=== PATIENT | female | born 1955 | race Caucasian/White ===

== ENCOUNTER 2018-03-18 15:38 | Inpatient (IN) ==
[2018-03-18] MEDS: Sod Chloride 0.9% Inj 1,000 ML IV.SIG SCH (17:16)
[2018-03-18] MEDS ORDERED: Piperacil/Tazo 2.25 GM Premix 50 ML IV.SIG SCH (18:00)
--- NOTE | 2018-03-18 18:12 | P.HP ---
History of Present Illness Service: medicine Primary Care Physician: Valencia Leigh MD History of Present Illness: Patient is a 62 year old female who approximately 2 weeks ago presented to the office with fever of 102, lower abdominal pain, sweats ,diarrhea and bloating. She was referred to the ED where evaluation revealed elevated white count and diverticulitis on ct scan. She was discharged on cipro and flagyl which she completed 6 days ago We kept in contact with her over the phone and per her report she was improving but still had occasionally lower abdominal cramping pain. She was brought into the office 2 days ago to evaluate resolution of her symptoms. She stated she was feeling better but still had the occasional cramping. She was sent for repeat lab work that showed white count of 13.5 CRP 81.7,Her cipro and flagyl were resumed yesterday pending ct scan that was ordered. This was done today and was read as worsening diverticulitis with evidence of contained perforation not felt to be amenable to drainage.She came back to the office and she still had complaint of lower abdominal cramping, she could not recall if she had a BM today but states she thinks her last one was soft and dark. She also had the night sweats. She had decreased appetite but denied nausea or emesis. She was drinking fluids. I discussed the situation with her and Dr Yesenia Thomas. The patient was agreeable to admission for Iv antibiotics and colorectal surgery evaluation. - Diagnosis (1) Diverticulitis of colon with perforation (2) Hypertension (3) Asthma Review of Systems All other systems reviewed negative except as stated in HPI PMFSH - History History Provided By: Patient, Medical Record - Medical History Medical History: Medical History (Last Updated 03/18/18 @ 17:31 by Valencia Leigh MD) Diverticulitis of colon with perforation (Acute) Hypertension (Acute) Depression (Acute) Asthma (Acute) History of hysterectomy Tendon tear, ankle - Surgical History Surgical History: Surgical History (Last Updated 03/18/18 @ 17:13 by Valencia Leigh MD) History of bladder repair surgery History of knee replacement - Family History Family History: Family History (Last Updated 03/18/18 @ 17:13 by Valencia Leigh MD) Mother Bladder cancer Brother Alzheimer disease Father Lymphoma Sister Multiple sclerosis - Tobacco History Second Hand Smoke Exposure: No Smoking Status: Never smoker - Alcohol History How Often Do You Have a Drink Containing Alcohol: 2 to 3 times a week - Substance Use History Substance History: No History of Abuse - Immunization History Tetanus Immunization: Unsure Hx Influenza Vaccine This Season: Yes Medications and Allergies Active Medications: Active Medications Albuterol (Duoneb Neb (Prn)) 1 ampul NEB Q2HR NEB PRN PRN Reason: SHORTNESS OF BREATH/WHEEZING Albuterol (Ventolin Hfa Inh) 2 puff INH Q4H PRN PRN Reason: acute asthma attack Amlodipine Besylate (Norvasc) 5 mg PO DAILY HARLEEN Citalopram Hydrobromide (Celexa) 10 mg PO DAILY HARLEEN Sodium Chloride (Ns Inj) 1,000 mls @ 100 mls/hr IV.SIG .Q10H HARLEEN Last Admin: 03/18/18 17:16 Dose: 100 mls/hr Piperacillin/Tazobactam/Dextrose (Zosyn 2.25 Gm Premix) 50 mls @ 50 mls/hr IV.SIG Q8H HARLEEN Metronidazole/Sodium Chloride (Flagyl 500 Mg Inj) 100 mls @ 100 mls/hr IV.SIG Q8H HARLEEN Allergies Allergy/AdvReac Type Severity Reaction Status Date / Time animal dander Allergy Severe WHEEZING Verified 03/18/18 16:27 diclofenac Allergy Severe ASTHMA Verified 03/18/18 16:27 LIKE SYMPTOMS feathers Allergy Severe WHEEZING Verified 03/18/18 16:27 shellfish derived Allergy Severe HIVES Verified 03/18/18 16:27 Home Medications Medication Instructions Recorded Confirmed Type albuterol sulfate [Ventolin HFA] 2 puff INHALATION Q4-6H PRN 03/18/18 03/18/18 History amlodipine 5 mg PO DAILY 03/18/18 03/18/18 History citalopram 10 mg PO DAILY 03/18/18 03/18/18 History triamterene-hydrochlorothiazid 1 tab PO DAILY 03/18/18 03/18/18 History Exam Vital signs: Intake & Output 03/17/18 03/18/18 03/18/18 18:59 06:59 18:59 Weight 93.9 kg Other: Weight On Admission 93.9 kg Narrative: In office BP 120/62 T 98.4 P80 R 18 POx RA 95% - Constitutional no acute distress - Routine HEENT Exam Head: Present: normocephalic Eye: Present: EOMI ENT: Present: mucous membranes moist - Routine Neck Exam Present: supple - Routine Respiratory Exam Present: CTA bilaterally - Routine Cardiovascular Exam Present: RRR - Routine Abdominal Exam Present: soft, normoactive bowel sounds, tenderness Comments: tenderness over both lower quadrants and suprapubic region +- RUQ. no rebound or guarding - Routine Extremities Exam Present: full ROM - Routine Skin Exam Present: scars Comments: both knees from prior surgery - Routine Neurological Exam Present: alert, oriented X3 Caprini VTE Risk Assessment Caprini VTE Risk Assessment: Moderate/High Risk (score >= 2) Caprini Risk Assessment Model: Point Value = 1 Point Value = 2 Point Value = 3 Point Value = 5 Age 41-60 Minor surgery BMI > 25 kg/m2 Swollen legs Varicose veins or History of unexplained or recurrent spontaneous Oral contraceptives or hormone replacement Sepsis (< 1 month) Serious lung disease, including pneumonia (< 1 month) Abnormal pulmonary function Acute myocardial infarction Congestive heart failure (< 1 month) History of inflammatory bowel disease Medical patient at bed rest Age 61-74 Arthroscopic surgery Major open surgery (> 45 min) Laparoscopic surgery (> 45 min) Malignancy Confined to bed (> 72 hours) Immobilizing plaster cast Central venous access Age >= 75 History of VTE Family history of VTE Factor V Leiden Prothrombin [id number] Lupus anticoagulant Anticardiolipin antibodies Elevated serum homocysteine Heparin-induced thrombocytopenia Other congenital or acquired thrombophilia Stroke (< 1 month) Elective arthroplasty Hip, pelvis, or leg fracture Acute spinal cord injury (< 1 month) Prophylaxis Regimen: Total Risk Factor Score Risk Level Prophylaxis Regimen 0-1 Low Early ambulation 2 Moderate Order ONE of the following: *Sequential Compression Device (SCD) *Heparin 5000 units SQ BID 3-4 Higher Order ONE of the following medications: *Heparin 5000 units SQ TID *Enoxaparin/Lovenox 40 mg SQ daily (WT < 150 kg, CrCl > 30 mL/min) *Enoxaparin/Lovenox 30 mg SQ daily (WT < 150 kg, CrCl > 10-29 mL/min) *Enoxaparin/Lovenox 30 mg SQ BID (WT < 150 kg, CrCl > 30 mL/min) AND/OR *Sequential Compression Device (SCD) 5 or more Highest Order ONE of the following medications: *Heparin 5000 units SQ TID (Preferred with Epidurals) *Enoxaparin/Lovenox 40 mg SQ daily (WT < 150 kg, CrCl > 30 mL/min) *Enoxaparin/Lovenox 30 mg SQ daily (WT < 150 kg, CrCl > 10-29 mL/min) *Enoxaparin/Lovenox 30 mg SQ BID (WT < 150 kg, CrCl > 30 mL/min) AND *Sequential Compression Device (SCD) Assessment and Plan - Assessment (1) Diverticulitis of colon with perforation Code(s): K57.20 - Diverticulitis of large intestine with perforation and abscess without bleeding Status: Acute Onset Date: ~03/05/18 Plan: Discussed with Dr Thomas. Will admit for IV antibiotics, IV fluids and colorectal evaluation. (2) Hypertension Code(s): I10 - Essential (primary) hypertension Status: Chronic Onset Date: Unknown Plan: continue home medications, hold diuretics while receiving IV fluids (3) Asthma Code(s): J45.909 - Unspecified asthma, uncomplicated Status: Chronic Onset Date: Unknown Plan: continue inhalers as needed - Plan Discussed Condition With: patient (1) Diverticulitis of colon with perforation Qualifiers: Diverticulitis bleeding: without bleeding Qualified Code(s): K57.20 - Diverticulitis of large intestine with perforation and abscess without bleeding (2) Hypertension Qualifiers: Hypertension type: essential hypertension Qualified Code(s): I10 - Essential (primary) hypertension (3) Asthma Qualifiers: Asthma severity: unspecified severity Asthma persistence: intermittent
[2018-03-18] MEDS ORDERED: Acetaminophen 325 MG Tablet PO PRN (18:14)
[2018-03-18] MEDS ORDERED: Temazepam 15 MG Capsule PO PRN (18:14)
[2018-03-18] MEDS ORDERED: Sod Chloride 0.9% Inj 1,000 ML IV.CONT SCH (18:15)
[2018-03-18 18:19] LABS: Baso # (Auto) 0.1 th/mm3 (0.0-0.2); Baso % (Auto) 1.2 % (0.0-2.0); Eos # (Auto) 0.1 th/mm3 (0.0-0.4); Eos % (Auto) 0.8 % (0.0-4.0); Hematocrit 37.2 % (35.0-46.0); Hemoglobin 12.4 gm/dL (11.6-15.3); Lymph # (Auto) 1.7 th/mm3 (1.0-4.8); Lymph % (Auto) 16.5 % (9.0-44.0); Mean Corpuscular HGB Conc 33.5 % (32.0-36.0); Mean Corpuscular Hemoglobin 29.7 pg (27.0-34.0); Mean Corpuscular Volume 88.8 fL (80.0-100.0); Mean Platelet Volume 8.9 fL (7.0-11.0); Mono # (Auto) 0.8 th/mm3 (0.0-0.9); Mono % (Auto) 7.6 % (0.0-8.0); Neut # (Auto) 7.7 th/mm3 (1.8-7.7); Neut % (Auto) 73.9 % (16.0-70.0); Platelet Count 533 th/mm3 (150-450); Red Blood Count 4.19 mil/mm3 (4.00-5.30); Red Cell Distribution Width 14.2 % (11.6-17.2); White Blood Count 10.4 th/mm3 (4.0-11.0)
[2018-03-18 18:25] LABS: Bilirubin,Urine Negative (Negative); Clarity,Urine Clear (Clear); Color,Urine Yellow (Yellw/Straw); Glucose,Urine (UA) Negative (Negative); Leukocyte Esterase,Urine Negative (Negative); Nitrite,Urine Negative (Negative); PH,Urine 7.5 (5.0-8.5); Specific Gravity,Urine Less/Equal 1.005 (1.002-1.035); Urobilinogen,Urine 0.2 mg/dL (Less than 2)
--- NOTE | 2018-03-18 18:28 | MB ---
cc: Yesenia Thomas MD, Carmen A MD DATE: 03/18/2018 CHIEF COMPLAINT: Perforated diverticulitis. HISTORY OF PRESENT ILLNESS: The patient is a 62-year-old female with no previous history of diverticulitis. She began having both left and right lower quadrant pain about 2 weeks ago. She also describes fevers and chills. She has had some mild nausea, but no emesis. She denies any diarrhea or constipation. She was seen as an outpatient by Dr. Perez and CT scan revealed diverticulitis with a microperforation. She was treated with oral Cipro and Flagyl, and symptomatically seemed to get significantly better. She was then seen again by Dr. Perez with a repeat scan, which revealed a worsening of her disease, particularly in the pelvis. I have not been able to review that second CT scan as of yet. Dr. Perez admitted her for IV antibiotics and possible surgery. The patient reports her normal bowel pattern is daily, without straining or constipation. She denies any bright red blood per rectum or melena. She denies any rectal pain. She did have previous colonoscopy within the last 6 months. PAST MEDICAL HISTORY: 1. Hypertension. 2. Asthma. 3. Depression. PAST SURGICAL HISTORY: 1. Bladder repair. 2. Bilateral knee repair. 3. Ankle repair. 4. Hysterectomy without bilateral salpingo-oophorectomy. ALLERGIES: DICLOFENAC. MEDICATIONS: 1. Amlodipine. 2. Citalopram. 3. Albuterol. 4. Triamterene/hydrochlorothiazide. SOCIAL HISTORY: Tobacco: None. Alcohol: Occasional. Substance history: None. PHYSICAL EXAMINATION: GENERAL: Reveals a pleasant female who appears comfortable. NEUROLOGIC: Grossly intact. SKIN: Warm and dry. CARDIOVASCULAR: Regular rate. CHEST: Breathing is symmetric bilaterally and nonlabored. ABDOMEN: Soft, nondistended. The patient is moderately tender to deep palpation in the suprapubic area, the right lower quadrant and the left lower quadrant; suprapubic area being worse. There is no guarding. There is no rebound. EXTREMITIES: Reveal no edema. LABORATORY WORK: Pending. IMPRESSION: Acute perforated diverticulitis with contained perforation. PLAN: A long discussion was undertaken with the patient today discussing the natural history of diverticulitis as well as the rationale behind surgery. Currently, she is relatively asymptomatic and I do think that giving her 24-48 hours to see if she responds to IV antibiotics would be reasonable. If, however, she fails to improve or worsens, exploratory laparotomy with resection and possible Deepak's pouch is indicated. If we can, however, get her acute disease under control, with bowel rest and IV antibiotics, I think that we can hopefully cool her down enough that we could do surgery 2-[address], with minimally invasive surgery and primary anastomosis. This was discussed with the patient in detail. I will continue to follow along with you. Thank you very much for your kind referral. MD GUILLERMO Hodgson/AMARIS , 06:09 PM , 06:17 PM MTDChidi
[2018-03-18 18:34] LABS: INR 1.1 Ratio; Prothrombin Time 11.4 sec (9.8-11.6)
[2018-03-18 18:36] LABS: Albumin 3.2 g/dL (3.4-5.0); Anion Gap 8 meq/L (5-15); Blood Urea Nitrogen 12 mg/dL (7-18); Calcium 8.9 mg/dL (8.5-10.1); Carbon Dioxide 29.7 meq/L (21.0-32.0); Chloride 98 meq/L (98-107); Glucose,Random 93 mg/dL (74-106); Sodium 136 meq/L (136-145)
[2018-03-18 18:39] LABS: Potassium 2.9 meq/L (3.5-5.1)
[2018-03-18 18:46] LABS: Squamous Epithelial Cell,Urine 0-5 /hpf (0-5)
[2018-03-18 19:56] LABS: Alanine Aminotransferase 19 U/L (10-53); Alkaline Phosphatase 59 U/L (45-117); Aspartate Aminotransferase 14 U/L (15-37); Glomerular Filtration Rate 57 mL/min (>89); Total Protein 8.1 g/dL (6.4-8.2)
[2018-03-18] MEDS: Piperacil/Tazo 3.375 GM Premix 50 ML IV.SIG SCH (20:27)
[2018-03-19] MEDS: Piperacil/Tazo 3.375 GM Premix 50 ML IV.SIG SCH ×4 (01:47→23:34)
[2018-03-19] MEDS: Sod Chloride 0.9% Inj 1,000 ML IV.SIG SCH (02:57)
[2018-03-19 05:42] LABS: Baso # (Auto) 0.1 th/mm3 (0.0-0.2); Baso % (Auto) 0.9 % (0.0-2.0); Eos # (Auto) 0.2 th/mm3 (0.0-0.4); Eos % (Auto) 1.8 % (0.0-4.0); Hematocrit 35.2 % (35.0-46.0); Hemoglobin 11.6 gm/dL (11.6-15.3); Lymph # (Auto) 1.8 th/mm3 (1.0-4.8); Lymph % (Auto) 19.5 % (9.0-44.0); Mean Corpuscular HGB Conc 32.9 % (32.0-36.0); Mean Corpuscular Hemoglobin 30.3 pg (27.0-34.0); Mean Corpuscular Volume 92.1 fL (80.0-100.0); Mean Platelet Volume 8.1 fL (7.0-11.0); Mono # (Auto) 0.8 th/mm3 (0.0-0.9); Mono % (Auto) 9.2 % (0.0-8.0); Neut # (Auto) 6.2 th/mm3 (1.8-7.7); Neut % (Auto) 68.6 % (16.0-70.0); Platelet Count 512 th/mm3 (150-450); Red Blood Count 3.82 mil/mm3 (4.00-5.30); Red Cell Distribution Width 14.1 % (11.6-17.2); White Blood Count 9.1 th/mm3 (4.0-11.0)
[2018-03-19 06:35] LABS: Alanine Aminotransferase 15 U/L (10-53); Albumin 2.7 g/dL (3.4-5.0); Alkaline Phosphatase 49 U/L (45-117); Anion Gap 8 meq/L (5-15); Aspartate Aminotransferase 13 U/L (15-37); Blood Urea Nitrogen 11 mg/dL (7-18); Calcium 8.5 mg/dL (8.5-10.1); Carbon Dioxide 30.5 meq/L (21.0-32.0); Chloride 104 meq/L (98-107); Glomerular Filtration Rate 65 mL/min (>89); Glucose,Random 95 mg/dL (74-106); Potassium 3.7 meq/L (3.5-5.1); Sodium 142 meq/L (136-145); Total Protein 7.1 g/dL (6.4-8.2)
[2018-03-19] MEDS: amLODIPine 5 MG Tablet PO SCH ×2 (08:44→10:49)
[2018-03-19] MEDS: Citalopram 20 MG Tablet PO SCH (08:45)
--- NOTE | 2018-03-19 12:05 | P.PN ---
Subjective Interval history: some loose stools today no pain Physical Exam Vital signs: Vital Signs 03/18/18 17:31 03/18/18 20:00 03/19/18 00:00 Temperature 98.5 F 99.3 F 98.9 F Pulse Rate 19 L 71 74 Respiratory Rate 19 18 18 Blood Pressure 130/65 108/71 108/62 Pulse Oximetry 95 94 L 93 L 03/19/18 08:00 Temperature 98.5 F Pulse Rate 77 Respiratory Rate 18 Blood Pressure 113/61 Pulse Oximetry 97 Intake & Output 03/18/18 03/19/18 03/19/18 18:59 06:59 18:59 Intake Total 0 / 0 2300 / 2300 150 / 150 Output Total 200 / 200 Balance -200 / -200 2300 / 2300 150 / 150 Weight 93.9 kg 94.1 kg Intake: IV 2300 / 2300 150 / 150 NS + KCl 20 mEq Inj 1,000 ML @ 1000 / 1000 100 mls/hr IV.CONT .Q10H HARLEEN Rx #:[id number] Zosyn 3.375 GM Premix 50 ML @ 100 / 100 50 / 50 100 mls/hr IV.SIG Q6H HARLEEN Rx#: [id number] NS Inj 1,000 ML @ 100 mls/hr IV 1000 / 1000 .SIG .Q10H HARLEEN Rx#:[id number] Flagyl 500 MG Inj 100 ML @ 100 200 / 200 100 / 100 mls/hr IV.SIG Q8H HARLEEN Rx#: [id number] Oral 0 / 0 Output: Urine 200 / 200 Other: Date of Last Bowel Movement 03/17/18 Weight On Admission 93.9 kg - Constitutional no acute distress - Routine HEENT Exam Head: Present: normocephalic Eye: Present: EOMI - Routine Respiratory Exam Present: CTA bilaterally - Routine Cardiovascular Exam Present: RRR - Routine Abdominal Exam Present: soft, normoactive bowel sounds, tenderness Comments: rt lower quadrant tenderness - Routine Extremities Exam Present: full ROM - Routine Neurological Exam Present: alert, oriented X3 - Routine Psychiatric Exam Present: normal affect Results - Labs CBC & Chem 7: 03/19/18 05:09 03/19/18 05:19 Laboratory Results - last 24 hr 03/18/18 03/18/18 03/18/18 17:30 17:30 17:30 CBC w Diff Auto diff final WBC 10.4 RBC 4.19 Hgb 12.4 Hct 37.2 MCV 88.8 MCH 29.7 MCHC 33.5 RDW 14.2 Plt Count 533 H D MPV 8.9 Neut % (Auto) 73.9 H Lymph % (Auto) 16.5 [place] % (Auto) 7.6 Eos % (Auto) 0.8 Baso % (Auto) 1.2 Neut # (Auto) 7.7 Lymph # (Auto) 1.7 [place] # (Auto) 0.8 Eos # (Auto) 0.1 Baso # (Auto) 0.1 WBC Differential . Differential Comment . PT INR APTT Sodium 136 Potassium 2.9 L* Chloride 98 Carbon Dioxide 29.7 Anion Gap 8 BUN 12 Creatinine 0.99 Estimated GFR 57 L Random Glucose 93 Calcium 8.9 Total Bilirubin 0.4 AST 14 L ALT 19 Alkaline Phosphatase 59 C-Reactive Protein 5.81 H Total Protein 8.1 Albumin 3.2 L Urine Color Urine Clarity Urine pH Ur Specific [place] Urine Protein Urine Glucose (UA) Urine Ketones Urine Occult Blood Urine Nitrate Urine Bilirubin Urine Urobilinogen Ur Leukocyte Esterase Urine RBC Ur Squamous Epith Cells Micro UA Comment Urine Culture Comments 03/18/18 03/18/18 03/19/18 17:30 17:57 05:09 CBC w Diff Auto diff final WBC 9.1 RBC 3.82 L Hgb 11.6 Hct 35.2 MCV 92.1 MCH 30.3 MCHC 32.9 RDW 14.1 Plt Count 512 H MPV 8.1 Neut % (Auto) 68.6 Lymph % (Auto) 19.5 [place] % (Auto) 9.2 H Eos % (Auto) 1.8 Baso % (Auto) 0.9 Neut # (Auto) 6.2 Lymph # (Auto) 1.8 [place] # (Auto) 0.8 Eos # (Auto) 0.2 Baso # (Auto) 0.1 WBC Differential . Differential Comment . PT 11.4 INR 1.1 APTT 28.0 Sodium Potassium Chloride Carbon Dioxide Anion Gap BUN Creatinine Estimated GFR Random Glucose Calcium Total Bilirubin AST ALT Alkaline Phosphatase C-Reactive Protein Total Protein Albumin Urine Color Yellow Urine Clarity Clear Urine pH 7.5 Ur Specific [place] Less/equal 1.005 Urine Protein Negative Urine Glucose (UA) Negative Urine Ketones Negative Urine Occult Blood Moderate H Urine Nitrate Negative Urine Bilirubin Negative Urine Urobilinogen 0.2 Ur Leukocyte Esterase Negative Urine RBC 4-15 H Ur Squamous Epith Cells 0-5 Micro UA Comment Culture not ind Urine Culture Comments Culture not ind 03/19/18 05:19 CBC w Diff WBC RBC Hgb Hct MCV MCH MCHC RDW Plt Count MPV Neut % (Auto) Lymph % (Auto) [place] % (Auto) Eos % (Auto) Baso % (Auto) Neut # (Auto) Lymph # (Auto) [place] # (Auto) Eos # (Auto) Baso # (Auto) WBC Differential Differential Comment PT INR APTT Sodium 142 Potassium 3.7 D Chloride 104 Carbon Dioxide 30.5 Anion Gap 8 BUN 11 Creatinine 0.88 Estimated GFR 65 L Random Glucose 95 Calcium 8.5 Total Bilirubin 0.6 AST 13 L ALT 15 Alkaline Phosphatase 49 C-Reactive Protein Total Protein 7.1 D Albumin 2.7 L Urine Color Urine Clarity Urine pH Ur Specific [place] Urine Protein Urine Glucose (UA) Urine Ketones Urine Occult Blood Urine Nitrate Urine Bilirubin Urine Urobilinogen Ur Leukocyte Esterase Urine RBC Ur Squamous Epith Cells Micro UA Comment Urine Culture Comments Assessment and Plan - Assessment (1) Diverticulitis of colon with perforation Code(s): K57.20 - Diverticulitis of large intestine with perforation and abscess without bleeding Status: Acute Onset Date: ~03/05/18 Plan: Discussed with Dr Thomas. On IV antibiotics, labwork improving, clinically she looks much better then her Ct report. She had completed 10 days of oral antibiotics on thu and resumed on thursday while repeat ct was done as outpatient. Hopefully with Iv antibiotics we can control the process so she can have the procedure robotically further down the line. (2) Hypertension Code(s): I10 - Essential (primary) hypertension Status: Chronic Onset Date: Unknown Plan: blood pressure lower this am, amlodipine held (3) Asthma Code(s): J45.909 - Unspecified asthma, uncomplicated Status: Chronic Onset Date: Unknown Plan: continue inhalers as needed, currently lung exam clear (1) Diverticulitis of colon with perforation Qualifiers: Diverticulitis bleeding: without bleeding Qualified Code(s): K57.20 - Diverticulitis of large intestine with perforation and abscess without bleeding (2) Hypertension Qualifiers: Hypertension type: essential hypertension Qualified Code(s): I10 - Essential (primary) hypertension (3) Asthma Qualifiers: Asthma severity: unspecified severity Asthma persistence: intermittent
--- NOTE | 2018-03-19 18:05 | P.PN ---
Subjective Interval history: Diverticulitis with contained perforation still with mild pain Physical Exam Vital signs: Vital Signs 03/18/18 20:00 03/19/18 00:00 03/19/18 08:00 Temperature 99.3 F 98.9 F 98.5 F Pulse Rate 71 74 77 Respiratory Rate 18 18 18 Blood Pressure 108/71 108/62 113/61 Pulse Oximetry 94 L 93 L 97 03/19/18 12:00 03/19/18 16:00 Temperature 98.1 F 98.7 F Pulse Rate 73 76 Respiratory Rate 18 18 Blood Pressure 130/70 128/77 Pulse Oximetry 97 97 Intake & Output 03/18/18 03/19/18 03/19/18 18:59 06:59 18:59 Intake Total 0 / 0 2300 / 2300 150 / 150 Output Total 200 / 200 Balance -200 / -200 2300 / 2300 150 / 150 Weight 93.9 kg 94.1 kg Intake: IV 2300 / 2300 150 / 150 NS + KCl 20 mEq Inj 1,000 ML @ 1000 / 1000 100 mls/hr IV.CONT .Q10H HARLEEN Rx #:[id number] Zosyn 3.375 GM Premix 50 ML @ 100 / 100 50 / 50 100 mls/hr IV.SIG Q6H HARLEEN Rx#: [id number] NS Inj 1,000 ML @ 100 mls/hr IV 1000 / 1000 .SIG .Q10H HARLEEN Rx#:[id number] Flagyl 500 MG Inj 100 ML @ 100 200 / 200 100 / 100 mls/hr IV.SIG Q8H HARLEEN Rx#: [id number] Oral 0 / 0 Output: Urine 200 / 200 Other: Date of Last Bowel Movement 03/17/18 Weight On Admission 93.9 kg - Constitutional no acute distress - Routine Respiratory Exam Comments: breathing symmetric and nonlabored - Routine Abdominal Exam Comments: soft, nondistended, tender to deep palpation BLQ and suprapubic Results - Labs CBC & Chem 7: 03/19/18 05:09 03/19/18 05:19 Laboratory Results - last 24 hr 03/18/18 03/18/18 03/18/18 17:30 17:30 17:30 CBC w Diff Auto diff final WBC 10.4 RBC 4.19 Hgb 12.4 Hct 37.2 MCV 88.8 MCH 29.7 MCHC 33.5 RDW 14.2 Plt Count 533 H D MPV 8.9 Neut % (Auto) 73.9 H Lymph % (Auto) 16.5 [place] % (Auto) 7.6 Eos % (Auto) 0.8 Baso % (Auto) 1.2 Neut # (Auto) 7.7 Lymph # (Auto) 1.7 [place] # (Auto) 0.8 Eos # (Auto) 0.1 Baso # (Auto) 0.1 WBC Differential . Differential Comment . PT INR APTT Sodium 136 Potassium 2.9 L* Chloride 98 Carbon Dioxide 29.7 Anion Gap 8 BUN 12 Creatinine 0.99 Estimated GFR 57 L Random Glucose 93 Calcium 8.9 Total Bilirubin 0.4 AST 14 L ALT 19 Alkaline Phosphatase 59 C-Reactive Protein 5.81 H Total Protein 8.1 Albumin 3.2 L Urine Color Urine Clarity Urine pH Ur Specific [place] Urine Protein Urine Glucose (UA) Urine Ketones Urine Occult Blood Urine Nitrate Urine Bilirubin Urine Urobilinogen Ur Leukocyte Esterase Urine RBC Ur Squamous Epith Cells Micro UA Comment Urine Culture Comments 03/18/18 03/18/18 03/19/18 17:30 17:57 05:09 CBC w Diff Auto diff final WBC 9.1 RBC 3.82 L Hgb 11.6 Hct 35.2 MCV 92.1 MCH 30.3 MCHC 32.9 RDW 14.1 Plt Count 512 H MPV 8.1 Neut % (Auto) 68.6 Lymph % (Auto) 19.5 [place] % (Auto) 9.2 H Eos % (Auto) 1.8 Baso % (Auto) 0.9 Neut # (Auto) 6.2 Lymph # (Auto) 1.8 [place] # (Auto) 0.8 Eos # (Auto) 0.2 Baso # (Auto) 0.1 WBC Differential . Differential Comment . PT 11.4 INR 1.1 APTT 28.0 Sodium Potassium Chloride Carbon Dioxide Anion Gap BUN Creatinine Estimated GFR Random Glucose Calcium Total Bilirubin AST ALT Alkaline Phosphatase C-Reactive Protein Total Protein Albumin Urine Color Yellow Urine Clarity Clear Urine pH 7.5 Ur Specific [place] Less/equal 1.005 Urine Protein Negative Urine Glucose (UA) Negative Urine Ketones Negative Urine Occult Blood Moderate H Urine Nitrate Negative Urine Bilirubin Negative Urine Urobilinogen 0.2 Ur Leukocyte Esterase Negative Urine RBC 4-15 H Ur Squamous Epith Cells 0-5 Micro UA Comment Culture not ind Urine Culture Comments Culture not ind 03/19/18 05:19 CBC w Diff WBC RBC Hgb Hct MCV MCH MCHC RDW Plt Count MPV Neut % (Auto) Lymph % (Auto) [place] % (Auto) Eos % (Auto) Baso % (Auto) Neut # (Auto) Lymph # (Auto) [place] # (Auto) Eos # (Auto) Baso # (Auto) WBC Differential Differential Comment PT INR APTT Sodium 142 Potassium 3.7 D Chloride 104 Carbon Dioxide 30.5 Anion Gap 8 BUN 11 Creatinine 0.88 Estimated GFR 65 L Random Glucose 95 Calcium 8.5 Total Bilirubin 0.6 AST 13 L ALT 15 Alkaline Phosphatase 49 C-Reactive Protein Total Protein 7.1 D Albumin 2.7 L Urine Color Urine Clarity Urine pH Ur Specific [place] Urine Protein Urine Glucose (UA) Urine Ketones Urine Occult Blood Urine Nitrate Urine Bilirubin Urine Urobilinogen Ur Leukocyte Esterase Urine RBC Ur Squamous Epith Cells Micro UA Comment Urine Culture Comments Assessment and Plan - Assessment (1) Diverticulitis of colon with perforation Code(s): K57.20 - Diverticulitis of large intestine with perforation and abscess without bleeding Status: Acute Onset Date: ~03/05/18 - Plan Would continue NPO for one additional day, and continue IV antibiotics for 4-5 days. Possibly start clears tomorrow. (1) Diverticulitis of colon with perforation Qualifiers: Diverticulitis bleeding: without bleeding Qualified Code(s): K57.20 - Diverticulitis of large intestine with perforation and abscess without bleeding
[2018-03-20] MEDS: Piperacil/Tazo 3.375 GM Premix 50 ML IV.SIG SCH ×4 (02:15→21:37)
--- NOTE | 2018-03-20 07:24 | P.PN ---
Subjective Interval history: She has no nausea vomiting. She denies any current abdominal pain. She would like to try a liquid diet and Dr. Thomas suggested that she could likely be started on a liquid diet today. Physical Exam Vital signs: Vital Signs 03/19/18 08:00 03/19/18 12:00 03/19/18 16:00 Temperature 98.5 F 98.1 F 98.7 F Pulse Rate 77 73 76 Respiratory Rate 18 18 18 Blood Pressure 113/61 130/70 128/77 Pulse Oximetry 97 97 97 03/19/18 20:00 03/20/18 00:00 Temperature 99.8 F H 99.5 F Pulse Rate 78 79 Respiratory Rate 18 18 Blood Pressure 120/68 117/74 Pulse Oximetry 95 93 L Intake & Output 03/19/18 03/20/18 03/20/18 18:59 06:59 18:59 Intake Total 1150 / 1150 1300 / 1300 Balance 1150 / 1150 1300 / 1300 Weight 94.4 kg Intake: IV 1150 / 1150 1300 / 1300 NS + KCl 20 mEq Inj 1,000 ML @ 1000 / 1000 1000 / 1000 100 mls/hr IV.CONT .Q10H [facility] Rx #:[id number] Zosyn 3.375 GM Premix 50 ML @ 50 / 50 100 / 100 100 mls/hr IV.SIG Q6H [facility] Rx#: [id number] Flagyl 500 MG Inj 100 ML @ 100 100 / 100 200 / 200 mls/hr IV.SIG Q8H [facility] Rx#: [id number] Oral 0 / 0 Other: # Voids 3 # Bowel Movements 1 Narrative: Exam: This is a pleasant white female in no distress. HEENT: Pupils equal, EOMs intact, mouth without lesions Neck: No JVD, neck is supple Heart: Regular rate and rhythm without murmurs or gallops Lungs: Clear to auscultation Abdomen: Soft, nontender, no masses Extremities: No edema, pulses palpated, no calf tenderness Neuro: Alert, oriented, normal motor exam, sensation intact Results - Labs CBC & Chem 7: 03/19/18 05:09 03/19/18 05:19 Laboratory Results - last 48 hr 03/18/18 03/18/18 03/18/18 17:30 17:30 17:30 CBC w Diff Auto diff final WBC 10.4 RBC 4.19 Hgb 12.4 Hct 37.2 MCV 88.8 MCH 29.7 MCHC 33.5 RDW 14.2 Plt Count 533 H D MPV 8.9 Neut % (Auto) 73.9 H Lymph % (Auto) 16.5 [place] % (Auto) 7.6 Eos % (Auto) 0.8 Baso % (Auto) 1.2 Neut # (Auto) 7.7 Lymph # (Auto) 1.7 [place] # (Auto) 0.8 Eos # (Auto) 0.1 Baso # (Auto) 0.1 WBC Differential . Differential Comment . PT INR APTT Sodium 136 Potassium 2.9 L* Chloride 98 Carbon Dioxide 29.7 Anion Gap 8 BUN 12 Creatinine 0.99 Estimated GFR 57 L Random Glucose 93 Calcium 8.9 Total Bilirubin 0.4 AST 14 L ALT 19 Alkaline Phosphatase 59 C-Reactive Protein 5.81 H Total Protein 8.1 Albumin 3.2 L Urine Color Urine Clarity Urine pH Ur Specific [place] Urine Protein Urine Glucose (UA) Urine Ketones Urine Occult Blood Urine Nitrate Urine Bilirubin Urine Urobilinogen Ur Leukocyte Esterase Urine RBC Ur Squamous Epith Cells Micro UA Comment Urine Culture Comments 03/18/18 03/18/18 03/19/18 17:30 17:57 05:09 CBC w Diff Auto diff final WBC 9.1 RBC 3.82 L Hgb 11.6 Hct 35.2 MCV 92.1 MCH 30.3 MCHC 32.9 RDW 14.1 Plt Count 512 H MPV 8.1 Neut % (Auto) 68.6 Lymph % (Auto) 19.5 [place] % (Auto) 9.2 H Eos % (Auto) 1.8 Baso % (Auto) 0.9 Neut # (Auto) 6.2 Lymph # (Auto) 1.8 [place] # (Auto) 0.8 Eos # (Auto) 0.2 Baso # (Auto) 0.1 WBC Differential . Differential Comment . PT 11.4 INR 1.1 APTT 28.0 Sodium Potassium Chloride Carbon Dioxide Anion Gap BUN Creatinine Estimated GFR Random Glucose Calcium Total Bilirubin AST ALT Alkaline Phosphatase C-Reactive Protein Total Protein Albumin Urine Color Yellow Urine Clarity Clear Urine pH 7.5 Ur Specific [place] Less/equal 1.005 Urine Protein Negative Urine Glucose (UA) Negative Urine Ketones Negative Urine Occult Blood Moderate H Urine Nitrate Negative Urine Bilirubin Negative Urine Urobilinogen 0.2 Ur Leukocyte Esterase Negative Urine RBC 4-15 H Ur Squamous Epith Cells 0-5 Micro UA Comment Culture not ind Urine Culture Comments Culture not ind 03/19/18 05:19 CBC w Diff WBC RBC Hgb Hct MCV MCH MCHC RDW Plt Count MPV Neut % (Auto) Lymph % (Auto) [place] % (Auto) Eos % (Auto) Baso % (Auto) Neut # (Auto) Lymph # (Auto) [place] # (Auto) Eos # (Auto) Baso # (Auto) WBC Differential Differential Comment PT INR APTT Sodium 142 Potassium 3.7 D Chloride 104 Carbon Dioxide 30.5 Anion Gap 8 BUN 11 Creatinine 0.88 Estimated GFR 65 L Random Glucose 95 Calcium 8.5 Total Bilirubin 0.6 AST 13 L ALT 15 Alkaline Phosphatase 49 C-Reactive Protein Total Protein 7.1 D Albumin 2.7 L Urine Color Urine Clarity Urine pH Ur Specific [place] Urine Protein Urine Glucose (UA) Urine Ketones Urine Occult Blood Urine Nitrate Urine Bilirubin Urine Urobilinogen Ur Leukocyte Esterase Urine RBC Ur Squamous Epith Cells Micro UA Comment Urine Culture Comments Assessment and Plan - Assessment (1) Diverticulitis of colon with perforation Code(s): K57.20 - Diverticulitis of large intestine with perforation and abscess without bleeding Status: Acute Onset Date: ~03/05/18 (2) Hypertension Code(s): I10 - Essential (primary) hypertension Status: Chronic Onset Date: Unknown (3) Asthma Code(s): J45.909 - Unspecified asthma, uncomplicated Status: Chronic Onset Date: Unknown - Plan Plan: Continue IV antibiotics. Recommendation as to when to switch to oral antibiotics will be decided on by the colorectal surgeon. Start on a full liquid diet. Continue SCDs for DVT prophylaxis. Repeat CBC and BMP in the morning. (1) Diverticulitis of colon with perforation Qualifiers: Diverticulitis bleeding: without bleeding Qualified Code(s): K57.20 - Diverticulitis of large intestine with perforation and abscess without bleeding (2) Hypertension Qualifiers: Hypertension type: essential hypertension Qualified Code(s): I10 - Essential (primary) hypertension (3) Asthma Qualifiers: Asthma severity: unspecified severity Asthma persistence: intermittent
[2018-03-20 07:59] LABS: Baso % (Auto) 0.4 % (0.0-2.0); Eos # (Auto) 0.2 th/mm3 (0.0-0.4); Eos % (Auto) 1.8 % (0.0-4.0); Hematocrit 35.8 % (35.0-46.0); Hemoglobin 11.8 gm/dL (11.6-15.3); Lymph # (Auto) 1.7 th/mm3 (1.0-4.8); Lymph % (Auto) 18.2 % (9.0-44.0); Mean Corpuscular HGB Conc 32.9 % (32.0-36.0); Mean Corpuscular Hemoglobin 30.4 pg (27.0-34.0); Mean Corpuscular Volume 92.3 fL (80.0-100.0); Mean Platelet Volume 8.3 fL (7.0-11.0); Mono # (Auto) 0.7 th/mm3 (0.0-0.9); Mono % (Auto) 8.2 % (0.0-8.0); Neut # (Auto) 6.5 th/mm3 (1.8-7.7); Neut % (Auto) 71.4 % (16.0-70.0); Platelet Count 496 th/mm3 (150-450); Red Blood Count 3.88 mil/mm3 (4.00-5.30); White Blood Count 9.1 th/mm3 (4.0-11.0)
[2018-03-20 08:04] LABS: Chloride 105 meq/L (98-107); Potassium 3.7 meq/L (3.5-5.1); Sodium 140 meq/L (136-145)
[2018-03-20 08:07] LABS: Calcium 8.3 mg/dL (8.5-10.1)
[2018-03-20 08:08] LABS: Albumin 2.7 g/dL (3.4-5.0); Anion Gap 7 meq/L (5-15); Blood Urea Nitrogen 7 mg/dL (7-18); Carbon Dioxide 27.8 meq/L (21.0-32.0); Glucose,Random 88 mg/dL (74-106)
[2018-03-20 08:11] LABS: Alanine Aminotransferase 14 U/L (10-53); Aspartate Aminotransferase 11 U/L (15-37); Glomerular Filtration Rate 69 mL/min (>89)
[2018-03-20 08:12] LABS: Total Protein 7.1 g/dL (6.4-8.2)
[2018-03-20 08:14] LABS: Alkaline Phosphatase 51 U/L (45-117)
[2018-03-20] MEDS: Citalopram 20 MG Tablet PO SCH (08:18)
[2018-03-20] MEDS: amLODIPine 5 MG Tablet PO SCH (08:19)
--- NOTE | 2018-03-20 12:38 | P.PNCS ---
Subjective Interval history: C/R Surg afebrile, VSS clifford liq diet stools loose Objective Result Diagrams: 03/20/18 06:55 03/20/18 06:55 Objective Remarks: PE alert Abd - soft, no tympany, no mass, none tender Assessment and Plan - Assessment (1) Diverticulitis of colon with perforation Code(s): K57.20 - Diverticulitis of large intestine with perforation and abscess without bleeding Status: Acute Onset Date: ~03/05/18 - Plan Imp: adv diet dc IVF dc plans (1) Diverticulitis of colon with perforation Qualifiers: Diverticulitis bleeding: without bleeding Qualified Code(s): K57.20 - Diverticulitis of large intestine with perforation and abscess without bleeding
[2018-03-21] MEDS: Piperacil/Tazo 3.375 GM Premix 50 ML IV.SIG SCH ×3 (02:04→16:55)
--- NOTE | 2018-03-21 07:51 | P.PN ---
Subjective Interval history: No abdominal pain. No nausea, vomiting. She tolerated full liquid diet yesterday. Physical Exam Vital signs: Vital Signs 03/20/18 11:04 03/20/18 14:59 03/20/18 20:00 Temperature 98 F 98.3 F 98.8 F Pulse Rate 77 69 76 Respiratory Rate 20 20 20 Blood Pressure 107/67 110/66 119/71 Pulse Oximetry 94 L 94 L 95 03/21/18 00:00 03/21/18 07:19 Temperature 98.8 F 97.5 F L Pulse Rate 75 75 Respiratory Rate 20 20 Blood Pressure 110/71 137/80 Pulse Oximetry 95 95 Intake & Output 03/20/18 03/21/18 03/21/18 18:59 06:59 18:59 Intake Total 2220 / 2220 1300 / 1300 Balance 2220 / 2220 1300 / 1300 Weight 97 kg Intake: IV 1200 / 1200 1300 / 1300 NS + KCl 20 mEq Inj 1,000 ML @ 1000 / 1000 1000 / 1000 75 mls/hr IV.CONT .[id number] [facility] Rx#:[id number] Zosyn 3.375 GM Premix 50 ML @ 100 / 100 100 / 100 100 mls/hr IV.SIG Q6H [facility] Rx#: [id number] Flagyl 500 MG Inj 100 ML @ 100 100 / 100 200 / 200 mls/hr IV.SIG Q8H [facility] Rx#: [id number] Oral 1020 / 1020 Other: # Voids 5 Date of Last Bowel Movement 03/17/18 # Bowel Movements 1 Narrative: Exam: This is a pleasant [] in no distress. HEENT: Pupils equal, EOMs intact, mouth without lesions Neck: No JVD, neck is supple Heart: Regular rate and rhythm without murmurs or gallops Lungs: Clear to auscultation Abdomen: Soft, nontender, no masses Extremities: No edema, pulses palpated, no calf tenderness Neuro: Alert, oriented, normal motor exam, sensation intact Results - Labs CBC & Chem 7: 03/20/18 06:55 03/20/18 06:55 Laboratory Results - last 24 hr 03/20/18 03/20/18 06:55 06:55 CBC w Diff Auto diff final WBC 9.1 RBC 3.88 L Hgb 11.8 Hct 35.8 MCV 92.3 MCH 30.4 MCHC 32.9 RDW 14.0 Plt Count 496 H MPV 8.3 Neut % (Auto) 71.4 H Lymph % (Auto) 18.2 [place] % (Auto) 8.2 H Eos % (Auto) 1.8 Baso % (Auto) 0.4 Neut # (Auto) 6.5 Lymph # (Auto) 1.7 [place] # (Auto) 0.7 Eos # (Auto) 0.2 Baso # (Auto) 0.0 WBC Differential . Differential Comment . Sodium 140 Potassium 3.7 Chloride 105 Carbon Dioxide 27.8 Anion Gap 7 BUN 7 Creatinine 0.84 Estimated GFR 69 L Random Glucose 88 Calcium 8.3 L Total Bilirubin 0.5 AST 11 L ALT 14 Alkaline Phosphatase 51 Total Protein 7.1 Albumin 2.7 L Assessment and Plan - Assessment (1) Diverticulitis of colon with perforation Code(s): K57.20 - Diverticulitis of large intestine with perforation and abscess without bleeding Status: Acute Onset Date: ~03/05/18 (2) Hypertension Code(s): I10 - Essential (primary) hypertension Status: Chronic Onset Date: Unknown (3) Asthma Code(s): J45.909 - Unspecified asthma, uncomplicated Status: Chronic Onset Date: Unknown Plan: - Plan Plan: Continue IV antibiotics. Recommendation as to when to switch to oral antibiotics will be decided on by the colorectal surgeon. Continue on a full liquid diet. Continue SCDs for DVT prophylaxis. Repeat CBC and BMP in the morning. (1) Diverticulitis of colon with perforation Qualifiers: Diverticulitis bleeding: without bleeding Qualified Code(s): K57.20 - Diverticulitis of large intestine with perforation and abscess without bleeding (2) Hypertension Qualifiers: Hypertension type: essential hypertension Qualified Code(s): I10 - Essential (primary) hypertension (3) Asthma Qualifiers: Asthma severity: unspecified severity Asthma persistence: intermittent
[2018-03-21] MEDS: amLODIPine 5 MG Tablet PO SCH (08:25)
[2018-03-21] MEDS: Citalopram 20 MG Tablet PO SCH (08:26)
--- NOTE | 2018-03-21 08:40 | P.DIET ---
Nutritional Evaluation Type of nutrition evaluation: initial Nutrition screening: Weight Loss > 10 lbs Subjective Oral Diet Tolerance Assessment Indicates: Poor intake due to pain Subjective Comments: Pt reports a 15 lb wt loss over the past 2 weeks due to inability to eat r/t pain Objective - Diagnosis Diverticulitis - Objective [place] body weight: 105 kg % IBW: 203 Body Weight Used for Calculations: Upper end of IBW (52.7kg) Energy Needs - Lower Range (kCal/kg): 30 Energy Needs - Upper Range (kCal/kg): 35 Lower Limit kCal/kg (kCals): 1,581 Upper Limit kCal/kg (kCals): 1,845 Lower Limit Protein Factor (Grams per Kg): 1.1 Upper Limit Protein Factor (Grams per Kg): 1.4 Lower Protein Needs (Protein): 60 Upper Protein Needs (Protein): 74 Dietitian Reviewed in Medical Record: Current diet, Curent medications, Intake & Output, Labs, Medical history Diet Order: Full Liquid Oral Diet Intake Amount: Excellent 90%+ Objective Comments: PMH: Asthma, Depression, HTN Assessment Assessment: Pt at nutritional risk r/t dx and recent wt loss. Pt with Diverticulitis of the colon with perforation, on IV antibiotics. Pt's nutritional needs as assessed above. She is currently on a [place] diet and tolerating it well. She is receiving Ensure tid. Will monitor diet advancement, po intake for adequacy. Recommendations: [place] diet with Ensure tid Dietitian to Monitor: Lab values, Supplement acceptance, Intake & Output, Diet tolerance, PO Intake, Diet advancement
--- NOTE | 2018-03-21 12:25 | P.PNCS ---
Subjective Interval history: C/R Surg afebrile, VSS clifford PO less pain Objective Result Diagrams: 03/20/18 06:55 03/20/18 06:55 Objective Remarks: PE alert Abd - soft, min tender, no tympany, no mass Assessment and Plan - Assessment (1) Diverticulitis of colon with perforation Code(s): K57.20 - Diverticulitis of large intestine with perforation and abscess without bleeding Status: Acute Onset Date: ~03/05/18 - Plan Imp: adv diet dc IVF dc plans - RTO 2 weeks PO meds (1) Diverticulitis of colon with perforation Qualifiers: Diverticulitis bleeding: without bleeding Qualified Code(s): K57.20 - Diverticulitis of large intestine with perforation and abscess without bleeding
[2018-03-22 06:29] LABS: Potassium 4.2 meq/L (3.5-5.1)
[2018-03-22 06:31] LABS: Baso % (Auto) 0.7 % (0.0-2.0); Calcium 8.2 mg/dL (8.5-10.1); Eos # (Auto) 0.3 th/mm3 (0.0-0.4); Eos % (Auto) 3.6 % (0.0-4.0); Hematocrit 33.9 % (35.0-46.0); Hemoglobin 11.3 gm/dL (11.6-15.3); Lymph % (Auto) 28.3 % (9.0-44.0); Mean Corpuscular HGB Conc 33.4 % (32.0-36.0); Mean Corpuscular Hemoglobin 30.8 pg (27.0-34.0); Mean Corpuscular Volume 92.1 fL (80.0-100.0); Mean Platelet Volume 8.5 fL (7.0-11.0); Mono # (Auto) 0.6 th/mm3 (0.0-0.9); Mono % (Auto) 9.1 % (0.0-8.0); Neut # (Auto) 4.1 th/mm3 (1.8-7.7); Neut % (Auto) 58.3 % (16.0-70.0); Platelet Count 446 th/mm3 (150-450); Red Blood Count 3.68 mil/mm3 (4.00-5.30); Red Cell Distribution Width 13.8 % (11.6-17.2)
[2018-03-22 06:32] LABS: Carbon Dioxide 27.9 meq/L (21.0-32.0)
[2018-03-22] MEDS: amLODIPine 5 MG Tablet PO SCH (08:42)
[2018-03-22] MEDS: Citalopram 20 MG Tablet PO SCH (08:42)
--- NOTE | 2018-03-22 13:57 | P.DS ---
Date of admission: 03/18/18 18:14 Primary care physician: Valencia Leigh MD Attending physician on discharge: Bennett Lizett German Anticipated date of discharge: 03/22/18 Brief History from admission: Patient is a 62 year old female who approximately 2 weeks ago presented to the office with fever of 102, lower abdominal pain, sweats ,diarrhea and bloating. She was referred to the ED where evaluation revealed elevated white count and diverticulitis on ct scan. She was discharged on cipro and flagyl which she completed 6 days ago We kept in contact with her over the phone and per her report she was improving but still had occasionally lower abdominal cramping pain. She was brought into the office 2 days ago to evaluate resolution of her symptoms. She stated she was feeling better but still had the occasional cramping. She was sent for repeat lab work that showed white count of 13.5 CRP 81.7,Her cipro and flagyl were resumed yesterday pending ct scan that was ordered. This was done today and was read as worsening diverticulitis with evidence of contained perforation not felt to be amenable to drainage.She came back to the office and she still had complaint of lower abdominal cramping, she could not recall if she had a BM today but states she thinks her last one was soft and dark. She also had the night sweats. She had decreased appetite but denied nausea or emesis. She was drinking fluids. I discussed the situation with her and Dr Yesenia Thomas. The patient was agreeable to admission for Iv antibiotics and colorectal surgery evaluation. (This history was taken by PCP and admitting physician, Dr Perez and it auto populated this section of this summary) on the day of admission. I should add that A CT scan of the abdomen/pelvis done at [facility] showed worsening diverticulitis with evidence of a contained perforation and increasing volumes of extraluminal gas and fluid in the deep pelvis. There was nothing amenable to percutaneous drainage). DS: Diagnosis - Discharge Diagnosis (1) Diverticulitis of colon with perforation Status: Acute Diagnosis: Principal (2) Hypertension Status: Chronic Diagnosis: Secondary (3) Asthma Status: Chronic Diagnosis: Secondary DS: Medications - Discharge Medications Prescriptions: metronidazole 500 mg PO Q8HR #20 tab sulfamethoxazole-trimethoprim 1 tab PO Q12HR #20 tab DS: Summary Hospital Course: Hospital course: Patient was admitted and begun on Zosyn and Flagyl IV. A colorectal surgery consult was obtained with Dr. Yesenia Thomas. Her symptoms have improved with antibiotic therapy and she was begun on a full liquid diet on the morning of 03/20/18 and then advance to a soft diet on 03/21/18. Her abdominal pain has resolved. She has had no further fever. She has been cleared for discharge. I talked with Dr. Yesenia Thomas earlier today and she recommends sending her home on Bactrim DS and Flagyl for continued oral antibiotic therapy. Dr. Yesenia Thomas wants to see her again on of this week on 03/25/18. She will continue on a soft diet. Her discharge medications will be: Bactrim DS one twice a day for 10 days Metronidazole 500 mg 3 times daily for 10 day Albuterol inhaler 2 puffs 4 times a day as needed Amlodipine 5 mg a day. Citalopram 10mg a day She had been on triamterene/HCTZ but this was stopped because her potassium was low on admission. She will follow-up with her PCP (Dr. Carbajal) in 1 week. - Time Spent with Patient Total time spent providing and/or coordinating discharge services: - Quality: VTE Deep Vein Thrombosis/Pulmonary Embolism Present on Admission: No Exam Vital signs: Vital Signs 03/21/18 15:01 03/21/18 16:00 03/21/18 20:00 Temperature 96.8 F L 98.8 F Pulse Rate 87 75 76 Respiratory Rate 20 16 Blood Pressure 133/74 107/62 Pulse Oximetry 98 95 03/22/18 00:00 03/22/18 08:00 03/22/18 12:00 Temperature 98.3 F 98.1 F 98.9 F Pulse Rate 78 77 77 Respiratory Rate 16 18 18 Blood Pressure 126/65 135/85 135/79 Pulse Oximetry 94 L 95 97 Intake & Output 03/21/18 03/22/18 03/22/18 18:59 06:59 18:59 Intake Total 1520 / 1520 1999 Balance 1520 / 1520 1999 Weight 97 kg Intake: IV 200 / 200 1999 NS + KCl 20 mEq Inj 1,000 ML @ 1999 75 mls/hr IV.CONT .[id number] [facility] Rx#:[id number] Zosyn 3.375 GM Premix 50 ML @ 100 / 100 100 mls/hr IV.SIG Q6H [facility] Rx#: [id number] Flagyl 500 MG Inj 100 ML @ 100 100 / 100 mls/hr IV.SIG Q8H [facility] Rx#: [id number] Oral 1320 / 1320 Other: # Voids 4 Date of Last Bowel Movement 03/17/18 # Bowel Movements 2 Narrative: Physical exam: This is a pleasant white female in no distress. HEENT: Pupils equal, EOMs intact, mouth without lesions Neck: No JVD, neck is supple Heart: Regular rate and rhythm without murmurs or gallops Lungs: Clear to auscultation Abdomen: Soft, nontender, no masses Extremities: No edema, pulses palpated, no calf tenderness Neuro: Alert, oriented, normal motor exam, sensation intact Results Procedures completed during hospitalization: None Labs on day of discharge: Labs from last 24 hours 03/22/18 03/22/18 04:55 04:55 CBC w Diff Auto diff final WBC 7.0 RBC 3.68 L Hgb 11.3 L Hct 33.9 L MCV 92.1 MCH 30.8 MCHC 33.4 RDW 13.8 Plt Count 446 MPV 8.5 Neut % (Auto) 58.3 Lymph % (Auto) 28.3 [place] % (Auto) 9.1 H Eos % (Auto) 3.6 Baso % (Auto) 0.7 Neut # (Auto) 4.1 Lymph # (Auto) 2.0 [place] # (Auto) 0.6 Eos # (Auto) 0.3 Baso # (Auto) 0.0 WBC Differential . Differential Comment . Sodium 142 Potassium 4.2 Chloride 108 H Carbon Dioxide 27.9 Anion Gap 6 BUN 7 Creatinine 0.81 Estimated GFR 72 L Random Glucose 95 Calcium 8.2 L Laboratory Tests 03/18/18 03/18/18 03/18/18 17:30 17:30 17:30 CBC w Diff Auto diff final WBC 10.4 RBC 4.19 Hgb 12.4 Hct 37.2 MCV 88.8 MCH 29.7 MCHC 33.5 RDW 14.2 Plt Count 533 H D MPV 8.9 Neut % (Auto) 73.9 H Lymph % (Auto) 16.5 [place] % (Auto) 7.6 Eos % (Auto) 0.8 Baso % (Auto) 1.2 Neut # (Auto) 7.7 Lymph # (Auto) 1.7 [place] # (Auto) 0.8 Eos # (Auto) 0.1 Baso # (Auto) 0.1 WBC Differential . Differential Comment . PT INR APTT Sodium 136 Potassium 2.9 L* Chloride 98 Carbon Dioxide 29.7 Anion Gap 8 BUN 12 Creatinine 0.99 Estimated GFR 57 L Random Glucose 93 Calcium 8.9 Total Bilirubin 0.4 AST 14 L ALT 19 Alkaline Phosphatase 59 C-Reactive Protein 5.81 H Total Protein 8.1 Albumin 3.2 L Urine Color Urine Clarity Urine pH Ur Specific [place] Urine Protein Urine Glucose (UA) Urine Ketones Urine Occult Blood Urine Nitrate Urine Bilirubin Urine Urobilinogen Ur Leukocyte Esterase Urine RBC Ur Squamous Epith Cells Micro UA Comment Urine Culture Comments 03/18/18 03/18/18 03/19/18 17:30 17:57 05:09 CBC w Diff Auto diff final WBC 9.1 RBC 3.82 L Hgb 11.6 Hct 35.2 MCV 92.1 MCH 30.3 MCHC 32.9 RDW 14.1 Plt Count 512 H MPV 8.1 Neut % (Auto) 68.6 Lymph % (Auto) 19.5 [place] % (Auto) 9.2 H Eos % (Auto) 1.8 Baso % (Auto) 0.9 Neut # (Auto) 6.2 Lymph # (Auto) 1.8 [place] # (Auto) 0.8 Eos # (Auto) 0.2 Baso # (Auto) 0.1 WBC Differential . Differential Comment . PT 11.4 INR 1.1 APTT 28.0 Sodium Potassium Chloride Carbon Dioxide Anion Gap BUN Creatinine Estimated GFR Random Glucose Calcium Total Bilirubin AST ALT Alkaline Phosphatase C-Reactive Protein Total Protein Albumin Urine Color Yellow Urine Clarity Clear Urine pH 7.5 Ur Specific [place] Less/equal 1.005 Urine Protein Negative Urine Glucose (UA) Negative Urine Ketones Negative Urine Occult Blood Moderate H Urine Nitrate Negative Urine Bilirubin Negative Urine Urobilinogen 0.2 Ur Leukocyte Esterase Negative Urine RBC 4-15 H Ur Squamous Epith Cells 0-5 Micro UA Comment Culture not ind Urine Culture Comments Culture not ind 03/19/18 03/20/18 03/20/18 05:19 06:55 06:55 CBC w Diff Auto diff final WBC 9.1 RBC 3.88 L Hgb 11.8 Hct 35.8 MCV 92.3 MCH 30.4 MCHC 32.9 RDW 14.0 Plt Count 496 H MPV 8.3 Neut % (Auto) 71.4 H Lymph % (Auto) 18.2 [place] % (Auto) 8.2 H Eos % (Auto) 1.8 Baso % (Auto) 0.4 Neut # (Auto) 6.5 Lymph # (Auto) 1.7 [place] # (Auto) 0.7 Eos # (Auto) 0.2 Baso # (Auto) 0.0 WBC Differential . Differential Comment . PT INR APTT Sodium 142 140 Potassium 3.7 D 3.7 Chloride 104 105 Carbon Dioxide 30.5 27.8 Anion Gap 8 7 BUN 11 7 Creatinine 0.88 0.84 Estimated GFR 65 L 69 L Random Glucose 95 88 Calcium 8.5 8.3 L Total Bilirubin 0.6 0.5 AST 13 L 11 L ALT 15 14 Alkaline Phosphatase 49 51 C-Reactive Protein Total Protein 7.1 D 7.1 Albumin 2.7 L 2.7 L Urine Color Urine Clarity Urine pH Ur Specific [place] Urine Protein Urine Glucose (UA) Urine Ketones Urine Occult Blood Urine Nitrate Urine Bilirubin Urine Urobilinogen Ur Leukocyte Esterase Urine RBC Ur Squamous Epith Cells Micro UA Comment Urine Culture Comments 03/22/18 03/22/18 04:55 04:55 CBC w Diff Auto diff final WBC 7.0 RBC 3.68 L Hgb 11.3 L Hct 33.9 L MCV 92.1 MCH 30.8 MCHC 33.4 RDW 13.8 Plt Count 446 MPV 8.5 Neut % (Auto) 58.3 Lymph % (Auto) 28.3 [place] % (Auto) 9.1 H Eos % (Auto) 3.6 Baso % (Auto) 0.7 Neut # (Auto) 4.1 Lymph # (Auto) 2.0 [place] # (Auto) 0.6 Eos # (Auto) 0.3 Baso # (Auto) 0.0 WBC Differential . Differential Comment . PT INR APTT Sodium 142 Potassium 4.2 Chloride 108 H Carbon Dioxide 27.9 Anion Gap 6 BUN 7 Creatinine 0.81 Estimated GFR 72 L Random Glucose 95 Calcium 8.2 L Total Bilirubin AST ALT Alkaline Phosphatase C-Reactive Protein Total Protein Albumin Urine Color Urine Clarity Urine pH Ur Specific [place] Urine Protein Urine Glucose (UA) Urine Ketones Urine Occult Blood Urine Nitrate Urine Bilirubin Urine Urobilinogen Ur Leukocyte Esterase Urine RBC Ur Squamous Epith Cells Micro UA Comment Urine Culture Comments Discharge Plan - Discharge Disposition Patient Disposition: 01 Discharge Home - Discharge Condition Condition: Good - Discharge Order Discharge Orders: Discharge Order (Routine); Ordered 03/22/18 Ordered By: Bennett German - Discharge Details Anticipated Discharge Date: 03/22/18 - Physicians Team Primary Care Provider: Valencia Leigh Attending Provider: Valencia Leigh Other Providers: Yesenia Thomas MD - Rxs /Orders / Referrals /Forms Prescriptions: New metronidazole 500 mg Tablet 500 mg PO Q8HR Qty: 20 RF: 0 sulfamethoxazole-trimethoprim 800-160 mg Tablet 1 tab PO Q12HR Qty: 20 RF: 0 Continue albuterol sulfate [Ventolin HFA] 90 mcg/actuation Hfa Aerosol Inhaler 2 puff INHALATION Q4-6H PRN (Reason: acute asthma attack ) amlodipine 5 mg Tablet 5 mg PO DAILY citalopram 10 mg Tablet 10 mg PO DAILY Discontinued triamterene-hydrochlorothiazid 37.5-25 mg Tablet 1 tab PO DAILY Referrals: Valencia Leigh MD [Primary Care Provider] - See Instructions (Followup with PCP within one week) Yesenia Thomas MD [Physician] - 03/25/18
[2018-03-22] MEDS ORDERED: metroNIDAZOLE 500 MG Tablet PO SCH (14:00)
== END 2018-03-22 14:30 | disposition home or self-care (01) ==
LOC: PH3
PROVIDERS: ADMIT Legal Medicine; ATTEND Legal Medicine
DX: I10 Essential (primary) hypertension; Z91.013 Allergy to seafood; Z96.659 Presence of unspecified artificial knee joint; F32.9 Major depressive disorder, single episode, unspecified; J45.909 Unspecified asthma, uncomplicated; K57.20 Diverticulitis of large intestine with perforation and abscess without bleeding; Z91.048 Other nonmedicinal substance allergy status; Z79.899 Other long term (current) drug therapy

== ENCOUNTER 2018-06-18 06:19 | Inpatient (IN) ==
[2018-06-18] MEDS ORDERED: Chlorhexidine Gluconate 2% 1 Pack (2 Cloths) TOPICAL ONE (06:42)
[2018-06-18] MEDS ORDERED: Metoprolol Tartrate 25 MG Tablet PO ONE (06:42)
[2018-06-18] MEDS ORDERED: Sodium Chlor 0.9% Inj 500 ML IV.SIG SCH (07:00)
[2018-06-18] MEDS ORDERED: ceFAZolin 2 GM Premix Inj 2 GM/50 ML PIGGYBACK IV.SIG SCH (07:00)
[2018-06-18] MEDS: Dextrose 5%/NaCl 0.9% Inj 1,000 ML IV.SIG SCH ×3 (07:13→22:01)
[2018-06-18] MEDS ORDERED: Artificial Tears Opth Oint 3.5 GM Tube ONE (07:14)
[2018-06-18] MEDS ORDERED: Sugammadex Inj 200 MG/2 ML Vial IV.PUSH ONE (07:14)
[2018-06-18] MEDS ORDERED: Famotidine PF Inj 20 MG/2 ML Vial ONE (07:16)
[2018-06-18] MEDS ORDERED: Ketorolac Inj 30 MG/ML (IVP) Vial IV.PUSH ONE (08:44)
[2018-06-18] MEDS ORDERED: Lidocaine PF 1% Inj 5 ML Syringe OTHER ONE (08:44)
[2018-06-18] MEDS ORDERED: Normosol-R pH 7.4 Inj 1,000 ML IV.CONT ONE (08:44)
--- NOTE | 2018-06-18 09:56 | P.OP ---
- Preoperative Diagnosis (1) Diverticulitis of colon with perforation - Postoperative Diagnosis (1) Diverticulitis of colon with perforation Date of procedure: 06/18/18 Procedure: Cystoscopy and placement of bilateral ureteral catheters Anesthesia: GETA Surgeon: Callum Monge MD Estimated blood loss (mL): 0 Pathology: none sent Operation and Findings: Indication for urologic procedures: Consulted intraoperatively to place bilateral ureteral catheters to aid in visualization of this patient's ureters during her colorectal procedure. Urologic procedures in detail: Concurrent with the colorectal surgeon Dr. Thomas, I proceeded with cystoscopy and placement of bilateral ureteral catheters as follows: Initially cystoscopic evaluation was performed utilizing the rigid cystoscope with the 22 British sheath and the 30 degree lens. Both right and left ureteral orifices were in correct anatomic position draining clear yellow urine. There were no bladder mucosal lesions, calculi or diverticula formation. There were no areas suspicious for fistula formation. I then proceeded to pass a sensor 0.035 wire up the patient's left ureter until a small amount of resistance was met. A 6 British open-ended ureteral catheter was then advanced over this wire 25 cm in a cephalad direction. The guidewire was removed and reintroduced through secondary site by the cystoscope. In similar fashion the contralateral side was accomplished. With both catheters in place the wire and cystoscope were withdrawn. A 16 British 10 cc Johnson catheter was then placed in both ureteral catheters secured to the Johnson via a connector. All 3 catheters were then placed to gravity drainage. This completes the urologic surgery portion of combined procedures on this patient.
[2018-06-18] MEDS ORDERED: Naloxone Inj 0.4 MG/ML Vial IV.PUSH PRN (13:36)
[2018-06-18] MEDS ORDERED: Morphine Inj 4 MG/ML Vial ONE (14:29)
[2018-06-18] MEDS ORDERED: fentaNYL Citrate Inj 100 MCG/2 ML Ampul ONE (14:29)
[2018-06-18] MEDS ORDERED: Potassium Chlor 20 mEq Premix 20 MEQ/100 ML PIGGYBACK IV.SIG PRN ×2 (15:00)
[2018-06-18] MEDS ORDERED: *morphine SULFATE 4 MG/ML PERIprocedure ONLY ONE (15:19)
[2018-06-18] MEDS: Dextrose 5%/NaCl 0.9% Inj 1,000 ML IV.CONT SCH (16:24)
[2018-06-18] MEDS: Morphine Inj 30 MG/30 ML PCA.VIAL PCA PRN (17:00)
[2018-06-18 17:33] LABS: Baso % (Auto) 0.1 % (0.0-2.0); Hematocrit 41.2 % (35.0-46.0); Hemoglobin 13.3 gm/dL (11.6-15.3); Lymph # (Auto) 0.4 th/mm3 (1.0-4.8); Mean Corpuscular HGB Conc 32.4 % (32.0-36.0); Mean Corpuscular Hemoglobin 30.7 pg (27.0-34.0); Mean Corpuscular Volume 94.6 fL (80.0-100.0); Mean Platelet Volume 8.1 fL (7.0-11.0); Mono # (Auto) 0.8 th/mm3 (0.0-0.9); Mono % (Auto) 5.2 % (0.0-8.0); Neut # (Auto) 13.6 th/mm3 (1.8-7.7); Neut % (Auto) 91.7 % (16.0-70.0); Platelet Count 239 th/mm3 (150-450); Red Blood Count 4.35 mil/mm3 (4.00-5.30); Red Cell Distribution Width 16.3 % (11.6-17.2); White Blood Count 14.8 th/mm3 (4.0-11.0)
[2018-06-18 18:01] LABS: Calcium 8.2 mg/dL (8.5-10.1); Carbon Dioxide 25.3 meq/L (21.0-32.0); Potassium 3.9 meq/L (3.5-5.1)
[2018-06-18] MEDS: Heparin - SQ 10,000 UNITS/ML Vial SQ SCH (21:43)
[2018-06-18] MEDS: Famotidine PF Inj 20 MG/2 ML Vial IV.PUSH SCH (21:43)
[2018-06-19] MEDS: Dextrose 5%/NaCl 0.9% Inj 1,000 ML IV.CONT SCH ×3 (00:02→19:11)
[2018-06-19] MEDS: Dextrose 5%/NaCl 0.9% Inj 1,000 ML IV.SIG SCH (06:17)
[2018-06-19 08:16] LABS: Calcium 7.8 mg/dL (8.5-10.1); Carbon Dioxide 22.9 meq/L (21.0-32.0); Potassium 4.4 meq/L (3.5-5.1)
[2018-06-19] MEDS: Citalopram 20 MG Tablet PO SCH (09:22)
[2018-06-19] MEDS: Heparin - SQ 10,000 UNITS/ML Vial SQ SCH ×2 (09:22→21:21)
[2018-06-19] MEDS: Famotidine PF Inj 20 MG/2 ML Vial IV.PUSH SCH ×2 (09:23→21:21)
--- NOTE | 2018-06-19 09:30 | P.PNCS ---
Subjective Colorectal Surgery Post Op Day #: 1 Interval history: afebrile, VSS UO good 1 stent dc'd Objective Result Diagrams: 06/18/18 17:11 06/19/18 07:30 Objective Remarks: PE alert Abd - soft, wound dry, min tympany Assessment and Plan - Plan Imp: stable post-op OOB decr IVF tx to floor
[2018-06-19 10:09] LABS: Baso # (Auto) 0.1 th/mm3 (0.0-0.2); Baso % (Auto) 0.6 % (0.0-2.0); Eos % (Auto) 0.2 % (0.0-4.0); Hemoglobin 11.9 gm/dL (11.6-15.3); Lymph # (Auto) 0.8 th/mm3 (1.0-4.8); Lymph % (Auto) 6.7 % (9.0-44.0); Mean Corpuscular HGB Conc 32.2 % (32.0-36.0); Mean Corpuscular Hemoglobin 30.6 pg (27.0-34.0); Mean Corpuscular Volume 95.2 fL (80.0-100.0); Mono # (Auto) 0.9 th/mm3 (0.0-0.9); Neut # (Auto) 9.8 th/mm3 (1.8-7.7); Neut % (Auto) 84.5 % (16.0-70.0); Platelet Count 260 th/mm3 (150-450); Red Blood Count 3.89 mil/mm3 (4.00-5.30); Red Cell Distribution Width 16.4 % (11.6-17.2); White Blood Count 11.6 th/mm3 (4.0-11.0)
[2018-06-19] MEDS: Morphine Inj 30 MG/30 ML PCA.VIAL PCA PRN (13:52)
[2018-06-20] MEDS: Dextrose 5%/NaCl 0.9% Inj 1,000 ML IV.CONT SCH ×2 (05:56→19:11)
[2018-06-20 07:57] LABS: Baso % (Auto) 0.4 % (0.0-2.0); Eos # (Auto) 0.2 th/mm3 (0.0-0.4); Eos % (Auto) 2.3 % (0.0-4.0); Hematocrit 32.7 % (35.0-46.0); Hemoglobin 10.9 gm/dL (11.6-15.3); Lymph # (Auto) 1.7 th/mm3 (1.0-4.8); Lymph % (Auto) 16.3 % (9.0-44.0); Mean Corpuscular HGB Conc 33.4 % (32.0-36.0); Mean Corpuscular Hemoglobin 31.3 pg (27.0-34.0); Mean Corpuscular Volume 93.5 fL (80.0-100.0); Mean Platelet Volume 8.5 fL (7.0-11.0); Mono # (Auto) 0.9 th/mm3 (0.0-0.9); Mono % (Auto) 8.7 % (0.0-8.0); Neut # (Auto) 7.4 th/mm3 (1.8-7.7); Neut % (Auto) 72.3 % (16.0-70.0); Platelet Count 220 th/mm3 (150-450); Red Cell Distribution Width 15.7 % (11.6-17.2); White Blood Count 10.3 th/mm3 (4.0-11.0)
[2018-06-20 08:24] LABS: Calcium 7.8 mg/dL (8.5-10.1); Potassium 3.2 meq/L (3.5-5.1)
[2018-06-20] MEDS: Citalopram 20 MG Tablet PO SCH (09:02)
[2018-06-20] MEDS: Heparin - SQ 10,000 UNITS/ML Vial SQ SCH ×2 (09:03→21:04)
[2018-06-20] MEDS: Famotidine PF Inj 20 MG/2 ML Vial IV.PUSH SCH ×2 (09:03→21:02)
--- NOTE | 2018-06-20 21:25 | P.PNCS ---
Subjective Colorectal Surgery Post Op Day #: 2 Interval history: afebrile, VSS UO good clifford PO Objective Result Diagrams: 06/20/18 06:45 06/20/18 06:45 Objective Remarks: PE alert Abd - soft, wound dry, min tympany Assessment and Plan - Plan Imp: OOB decr IVF tx to floor decr IVF
[2018-06-21] MEDS: Dextrose 5%/NaCl 0.9% Inj 1,000 ML IV.CONT SCH (06:05)
[2018-06-21] MEDS: Heparin - SQ 10,000 UNITS/ML Vial SQ SCH (08:09)
[2018-06-21] MEDS: Famotidine PF Inj 20 MG/2 ML Vial IV.PUSH SCH (08:09)
[2018-06-21] MEDS: Citalopram 20 MG Tablet PO SCH (08:09)
--- NOTE | 2018-06-21 13:19 | P.PNCS ---
Subjective Colorectal Surgery Post Op Day #: 2 Interval history: s/p robotic sigmoid resection for diverticulitis comfortable Objective Result Diagrams: 06/20/18 06:45 06/20/18 06:45 Objective Remarks: Abdomen: soft, nondistended, mildly tender wounds clean Assessment and Plan - Plan Doing well Home today Followup 3 weeks
--- NOTE | 2018-06-21 14:50 | MD ---
cc: Yesenia Thomas MD DATE OF DISCHARGE: 06/21/2018 ADMISSION DIAGNOSIS: Chronic diverticulitis. DISCHARGE DIAGNOSIS: Chronic diverticulitis. PROCEDURES: 1. Cystoscopy with placement of bilateral ureteral catheters. 2. Robotic extensive lysis of adhesions with sigmoid resection. HOSPITAL COURSE: The patient is a 62-year-old female with a history of chronic diverticulitis. She was admitted to the hospital on 06/18/2018 after an outpatient bowel prep. She was taken to the operating room where she underwent the above-named procedures. Postoperatively, the patient did well with rapid return of bowel and bladder function. She was discharged home on hospital day #3 with instructions to followup with myself in the office in 3 weeks. Final pathology was not available at the time of discharge. Yesenia Thomas MD KW/ld , 01:24 PM , 01:29 PM
--- NOTE | 2018-06-29 11:22 | MP ---
cc: Yesenia Thomas MD DATE OF OPERATION: 06/18/2018 PREOPERATIVE DIAGNOSIS: Diverticulitis. POSTOPERATIVE DIAGNOSIS: Diverticulitis. PROCEDURE PERFORMED: 1. Robotic extensive lysis of adhesions. 2. Robotic sigmoid resection. SURGEON: Yesenia Thomas MD. BEHAVIORAL HEALTH DIRECTOR: Jules. ANESTHESIA: General per ET tube. ESTIMATED BLOOD LOSS: 100 mL. OPERATIVE INDICATIONS: The patient is a 62-year-old female with a history of multiple attacks of increasing diverticulitis. OPERATIVE COURSE: The patient was brought to the operating room, placed in the supine position. After induction of general anesthesia, the skin of the anterior abdominal wall as well as the perineal area was prepped and draped in usual sterile fashion. Dr. Monge then came in and performed cystoscopy and placement of bilateral ureteral catheters, please see his operative note for details. The site was then chosen for the camera, being located just to the right and above the umbilicus. A 10-12 trocar was placed at this location under direct vision using the laparoscope. A CO2 insufflation was then began and a brief abdominal survey was performed with nothing noted that would preclude the robotic approach. The remainder of the trocars were then placed as follows: In the right lower quadrant, a 10-12 trocar was placed just inside the right anterior superior iliac spine. The #5 assist port was placed equidistance from the #1 in Port and the camera port just under the right costal margin. The patient was hydroplaned with head down and the small bowel was brought up and out of the pelvis. There were some small adhesions of small bowel that needed to be divided in order to bring the small bowel up and out of the pelvis completely. These were dissected free using electrocautery. Eventually, we had mobility of the small bowel up and out of the pelvis and I was able to assess the descending colon. It did not appear that I would need to take down the splenic flexure, so the #2 and 3 ports were placed as follows: The #3 port was placed on the umbilical line in the left anterior axillary line and the #2 port was placed in the left midclavicular line 2 fingerbreadths above the umbilical line. The robot was then docked. The sigmoid colon was grasped and retracted to the left and the peritoneum was scored on the right. Dissection continued in the posterior plane underneath the vessels until the left sidewall was reached and the left ureter was clearly identified and swept away from the specimen. A window was then made around the vessels using electrocautery. The white load of the [employer] stapler was brought onto the field, placed around the vessels, and fired. Dissection then continued posteriorly down to the level of the mid rectum and up and around the right side. On the left side, there were dense adhesions of scar tissue of the sigmoid colon. These were carefully and tediously dissected free using electrocautery. Eventually, we had full mobility and were able to straighten out the bowel. A sponge stick was then placed into the rectum and the site was chosen for division of the rectum just distal to the sigmoid rectal junction. The mesentery at this level was divided using the Harmonic scalpel. [employer] stapler blue load was then placed across the bowel at this level, fired, and removed. A 29 EEA stapler was then placed up through the anus and advanced to the rectal stump without difficulty. It lay in a nice orientation. A small amount of fibrofatty tissue was then cleared off of the rectal stump. The dissection was continued up the left lateral sidewall, freeing the descending colon and the posterior colon mesentery until I felt that we had adequate length for an anastomosis. The robot was then undocked. A 10-12 cm transverse incision was made in the suprapubic area using electrocautery. Dissection was carried down to the fascia of the anterior abdominal wall. It was split the length of the skin incision. The medial fibers of the rectus abdominis muscle were then divided and the posterior fascia was then divided the length of the skin incision. Wound protector was then placed. The proximal stapled end of the bowel was then brought up and out through the wound protector. Site was chosen for proximal division of the colon where the sigmoid colon appeared soft and healthy with no sign of any inflammation. The mesentery at this level was serially divided and ligated using #0 Vicryl ties and a purse-string stapling device was placed across the bowel. The distal bowel was occluded with a Reagan clamp. The bowel was then amputated and taken to a back table where it was later opened and diverticulitis was confirmed. The anvil from the 29 EEA stapler was placed into the cut into the bowel. The previously placed purse-string suture was then secured. The stapler was advanced through the anus and up to the rectal stump. The anvil was into the spike, being careful that the bowel was not twisted. This was closed, held for 30 seconds, fired, and removed; thus creating an enteroenterotomy. Both anastomotic rings appeared to be complete and the anastomosis appeared pink and healthy circumferentially. Small amount of warm normal saline was placed in the pelvis. The air was insufflated until tension was noted with no sign of any leakage noted. The fascia at the posterior abdominal wall was then closed in a running fashion using #1 PDS and the anterior fascia was closed in a running fashion using #1 PDS. The skin was closed in a running subcuticular fashion using 3-0 Vicryl. CO2 insufflation was then resumed and the fascia of the 10-12 trocar sites were closed using the CrossBow and #0 Vicryl suture. The trocar sites were then closed in an interrupted subcuticular fashion using 3-0 Vicryl. Steri-Strips and sterile dressing were then applied. All sponge, needle, and instrument counts were correct and the patient was returned to the Postanesthesia Care Unit in stable condition. MD GUILLERMO Hodgson/davey , 10:38 AM , 10:50 AM
== END 2018-06-21 15:30 | disposition home or self-care (01) ==
LOC: HSDI 06:19 → HCIS 16:06
PROVIDERS: ADMIT Colon & Rectal Surgery; ATTEND Colon & Rectal Surgery